=== PATIENT | male | born 1980 | race African-American/Black ===

== ENCOUNTER 2017-02-23 06:53 | Emergency (ER) | payer SELFPAY ==
[~2017-02-23] VITALS: Ht 180.3 cm; Wt 90.7 kg
[~2017-02-23 06:53] MED LIST: ZPACK PO
[2017-02-23 07:02] VITALS: BP 124/78
--- NOTE | 2017-02-23 07:05 | NUR ---
TO BED 1 A 36 YO MALE PATIENT BIBSELF AND REPORTED TO WOKE UP THIS AM WITH SOB, DENIES CP. AAOX4, NAD NOTED. VSS. NONDIAPHORETIC. 97% O2 SATURATION ON ROOM AIR. NO SOB. BREATHING EVEN AND UNLABORED. PLACED ON MONITOR. COMFORT MEASURES RENDERED.
--- NOTE | 2017-02-23 07:11 | NUR ---
DR MURCIA AT BEDSIDE TO EVALUATE.
== END 2017-02-23 07:46 | disposition home or self-care (01) ==
LOC: ER 06:54
DX: F41.9 Anxiety disorder, unspecified (principal); Z88.0 Allergy status to penicillin
CPT/HCPCS: 99284; A4606 ×2; Z7610 ×2

== ENCOUNTER 2018-09-15 22:29 | Emergency (ER) | payer SELFPAY ==
[~2018-09-15] VITALS: Ht 182.9 cm; Wt 69.9 kg
--- NOTE | 2018-09-15 22:49 | NUR ---
BIBS FOR C/O BODY ACHE AND TINGLING AND FATIGUE FOR THE PAST WEEK. -N/V, - DIARRHEA, - RECCENT TRAVEL , - SOB.
[2018-09-15 23:00] VITALS: BP 119/77
--- NOTE | 2018-09-15 23:02 | NUR ---
ECG TECH AT THE BED SIDE
[2018-09-15 23:14] LABS: HEMATOCRIT 47 % (39-51); LYMPHOCYTES # (AUTO) 1.3 /CMM (0.8-4.8); MONOCYTES # (AUTO) 0.5 /CMM (0.1-1.30); NEUTROPHILS % (AUTO) 60.1 % (43.0-81.0)
[2018-09-15 23:20] LABS: CALCIUM, SERUM 9.1 mg/dL (8.5-10.1); CREATININE 0.8 mg/dL (0.6-1.3)
[2018-09-15 23:22] LABS: BASOPHILS % (AUTO) 0.5 % (0.0-2.0); EOSINOPHILS % (AUTO) 2.2 % (0.0-6.0); HEMOGLOBIN 15.8 g/dL (13.5-17.5); LYMPHOCYTES % (AUTO) 26.3 % (20.0-44.0); MEAN CORPUSCULAR HGB CONC 34 g/dl (31.0-36.0); MEAN CORPUSCULAR VOLUME 85 fL (80-96); MONOCYTES % (AUTO) 10.9 % (2.0-12.0); PLATELET COUNT (AUTO) 188 /CMM (150-450)
[2018-09-15 23:26] LABS: ALBUMIN 3.9 g/dL (3.4-5.0); BILIRUBIN,TOTAL 0.4 mg/dL (0.2-1.0); TOTAL PROTEIN, SERUM 7.4 g/dL (6.4-8.2)
--- NOTE | 2018-09-16 00:09 | NUR ---
Patient discharged to home in stable condition. Rx and Written and verbal after care instructions given. Patient verbalizes understanding of instruction.
== END 2018-09-16 00:14 | disposition home or self-care (01) ==
LOC: ER 22:32
DX: F41.9 Anxiety disorder, unspecified (principal); Z88.0 Allergy status to penicillin
CPT/HCPCS: 36415; 80053-TC; 85025-TC